=== PATIENT | female | born 1960 | race African-American/Black ===

== ENCOUNTER 2021-12-19 12:12 | Observation (INO) | payer OTHER, MEDICARE, BC ==
[2021-12-19] MEDS ORDERED: Morphine 4 MG/ML VIAL ONE ×2 (13:58→16:51)
[2021-12-19] MEDS ORDERED: Ketamine 50 MG/ML (10ML VIAL) ONE (17:45)
[2021-12-19] MEDS ORDERED: Fentanyl 100 MCG/2 ML VIAL ONE (19:11)
[2021-12-19 19:32] LABS: #Monocytes 0.6 10x3/uL (0.0-1.1); #Neutrophils 8.8 10x3/uL (1.5-8.4); %Basophils 0.4 % (0.0-2.0); %Eosinophils 0.1 % (0.0-6.0); %Lymphocytes 11.6 % (18.0-47.0); %Neutrophils 81.5 % (40.0-75.0); Hemoglobin 14.2 g/dL (12.0-15.5); Mean Corpuscular HGB CONC 32.6 g/dL (32.0-36.0); Mean Corpuscular Volume 89.2 fl (81.6-98.3); Mean Platelet Volume 11.1 fl (7.4-10.4); Platelet Count 239 10x3/uL (150-450); RBC Distribution Width 13.1 % (11.5-14.5); Red Blood Cell (RBC) Count 4.89 10x6/uL (3.90-5.03); White Blood Cell (WBC) Count 10.7 10x3/uL (3.5-10.5)
[2021-12-19] MEDS ORDERED: Calcium Carbonate 500 MG ChewTAB PO PRN (19:36)
[2021-12-19] MEDS ORDERED: Acetaminophen 325 MG TAB PO PRN (19:36)
[2021-12-19] MEDS ORDERED: Ondansetron PF 4 MG/2 ML Vial IVP PRN (19:36)
[2021-12-19] MEDS ORDERED: Zolpidem Tartrate 5 MG TAB PO PRN (19:36)
[2021-12-19] MEDS ORDERED: Guaifenesin DM 100-10/5 ML UDCUP PO PRN (19:36)
[2021-12-19] MEDS ORDERED: Senokot S 8.6-50 MG TAB PO PRN (19:36)
[2021-12-19 19:37] LABS: ALT (SGPT) 16 U/L (8-55); AST (SGOT) 23 U/L (5-34); Alkaline Phosphatase 124 U/L (40-110); Anion Gap 13 mmol/L (10-20); BUN (Urea Nitrogen) 9 mg/dL (9.8-20.1); Bilirubin, Total 0.5 mg/dL (0.2-1.2); CK (CPK) 316 U/L (29-168); Calc. Creatinine Clearance 0 mL/min (70-130); Calcium 9.2 mg/dL (7.8-10.44); Carbon Dioxide 26 mmol/L (23-31); Chloride 107 mmol/L (98-107); Estimated GFR 100; Globulin 4.2 g/dL (2.4-3.5); Glucose 108 mg/dL (80-115); Potassium 4.1 mmol/L (3.5-5.1); Protein, Total 8.2 g/dL (5.8-8.1); Sodium 142 mmol/L (136-145)
[2021-12-19] MEDS ORDERED: Fentanyl 100 MCG/2 ML VIAL SLOW IVP PRN (19:38)
[2021-12-19] MEDS ORDERED: hydrALAZINE 20 MG/ML VIAL SLOW IVP PRN (19:40)
[2021-12-19 21:00] LABS: SARS-CoV-2 NAA Rapid Test Not Detected (NotDetected)
[2021-12-19] MEDS ORDERED: Morphine 2 MG/ML VIAL SLOW IVP PRN (21:12)
[2021-12-19] MEDS ORDERED: Lactated Ringer's 1,000 ML IV SCH (21:15)
[2021-12-19] MEDS ORDERED: Ketorolac Tromethamine 30 MG/ML VIAL ONE (21:54)
[2021-12-19] MEDS ORDERED: Famotidine 20 MG TAB ONE (21:56)
[2021-12-19] MEDS ORDERED: Atorvastatin Calcium 10 MG TAB ONE (21:57)
[2021-12-19] MEDS: Famotidine 20 MG TAB PO SCH (22:06)
[2021-12-19] MEDS: Docusate 100 MG CAP PO SCH (22:06)
[2021-12-19] MEDS: Atorvastatin Calcium 10 MG TAB PO SCH (22:06)
[2021-12-19] MEDS: Ketorolac Tromethamine 30 MG/ML VIAL IVP SCH (22:07)
[2021-12-19] MEDS: Valproate Sodium 250 mg/5 ml UD Cup PO SCH (22:14)
[2021-12-20] MEDS ORDERED: HYDROcodone/Acetaminophen 5/325 mg Tablet ONE (01:58)
[2021-12-20] MEDS: HYDROcodone/Acetaminophen 5/325 mg Tablet PO PRN (02:04)
[2021-12-20] MEDS: Ketorolac Tromethamine 30 MG/ML VIAL IVP SCH ×3 (04:33→16:21)
[2021-12-20] MEDS ORDERED: Ketorolac Tromethamine 30 MG/ML VIAL ONE (04:35)
[2021-12-20 05:09] LABS: ALT (SGPT) 14 U/L (8-55); AST (SGOT) 20 U/L (5-34); Albumin 3.8 g/dL (3.4-4.8); Alkaline Phosphatase 129 U/L (40-110); Anion Gap 14 mmol/L (10-20); BUN (Urea Nitrogen) 8 mg/dL (9.8-20.1); Bilirubin, Total 0.5 mg/dL (0.2-1.2); CK (CPK) 337 U/L (29-168); Calc. Creatinine Clearance 0 mL/min (70-130); Carbon Dioxide 27 mmol/L (23-31); Chloride 106 mmol/L (98-107); Estimated GFR 99; Globulin 3.8 g/dL (2.4-3.5); Glucose 90 mg/dL (80-115); Potassium 3.5 mmol/L (3.5-5.1); Protein, Total 7.6 g/dL (5.8-8.1); Sodium 143 mmol/L (136-145)
[2021-12-20 08:07] VITALS: BMI 36.1
[2021-12-20] MEDS: Docusate 100 MG CAP PO SCH ×2 (09:09→21:43)
[2021-12-20] MEDS: Amlodipine 10 MG TAB PO SCH (09:09)
[2021-12-20] MEDS: Famotidine 20 MG TAB PO SCH ×2 (09:10→21:43)
[2021-12-20] MEDS: Valproate Sodium 250 mg/5 ml UD Cup PO SCH ×2 (09:10→21:49)
[2021-12-20] MEDS: Acetaminophen 500 MG TAB PO SCH ×2 (13:40→16:21)
[2021-12-20] MEDS: Atorvastatin Calcium 10 MG TAB PO SCH (21:42)
[2021-12-21] MEDS: Acetaminophen 500 MG TAB PO SCH ×6 (00:02→21:52)
[2021-12-21] MEDS: Valproate Sodium 250 mg/5 ml UD Cup PO SCH ×2 (09:17→20:15)
[2021-12-21] MEDS: Famotidine 20 MG TAB PO SCH ×2 (09:18→20:18)
[2021-12-21] MEDS: HYDROcodone/Acetaminophen 5/325 mg Tablet PO PRN ×2 (09:18→20:15)
[2021-12-21] MEDS: Docusate 100 MG CAP PO SCH ×2 (09:18→20:15)
[2021-12-21] MEDS: Amlodipine 10 MG TAB PO SCH (09:18)
[2021-12-21 16:13] VITALS: BP 129/59; TEMP 98.3
[2021-12-21] MEDS: Atorvastatin Calcium 10 MG TAB PO SCH (20:15)
[2021-12-27] MEDS ORDERED: Ergocalciferol 1.25 MG(50,000 UNITS) CAP PO SCH (09:00)
== END 2021-12-21 20:30 | disposition home or self-care (01) ==
LOC: CSHERS 12:12 → INTOOBSV 21:10 → EEVIPCON 21:10 → CSHERHOLD 21:10 → CSHTELE 12-20 07:52
PROVIDERS: ADMIT Family Medicine; ATTEND Nurse Practitioner Family
DX: S52.501A Unspecified fracture of the lower end of right radius, initial encounter for closed fracture (principal); Z20.822 Contact with and (suspected) exposure to COVID-19; I10 Essential (primary) hypertension; E78.2 Mixed hyperlipidemia; G40.909 Epilepsy, unspecified, not intractable, without status epilepticus; R42 Dizziness and giddiness; E04.1 Nontoxic single thyroid nodule; E87.6 Hypokalemia; M16.0 Bilateral primary osteoarthritis of hip; M19.011 Primary osteoarthritis, right shoulder; Z79.899 Other long term (current) drug therapy; Z88.8 Allergy status to other drugs, medicaments and biological substances; Z85.3 Personal history of malignant neoplasm of breast; Z91.19 Patient's noncompliance with other medical treatment and regimen; Z91.81 History of falling; W01.0XXA Fall on same level from slipping, tripping and stumbling without subsequent striking against object, initial encounter
CPT/HCPCS: 25605; 70450; 72125; 72170; 73030; 73060; 73100; 73120; 73502; 80053 ×2; 82306; 82550 ×2; 85025; 94760; 96374; 96375 ×2; 96376; 97116; 97535; 99152; 99153; 99285; G0378 ×4; U0002; 36415; J1885; J2270; J3010; J7120

== ENCOUNTER 2022-02-21 13:12 | Day surgery (SDC) | payer MEDICARE, BC ==
[2022-02-21] MEDS ORDERED: Lidocaine 1% PF 5 ML VIAL ONE (13:37)
[2022-02-21] MEDS ORDERED: Sodium Bicarbonate 2.5 MEQ/5 ML VIAL ONE (13:38)
[2022-02-21 13:47] VITALS: BP 152/81; TEMP 97.2
== END 2022-02-21 15:05 | disposition home or self-care (01) ==
LOC: CSHULT 13:12
PROVIDERS: ATTEND Physician Assistant
PROC: 0GBG3ZX Excision of Left Thyroid Gland Lobe, Percutaneous Approach, Diagnostic (ICD-10-PCS; principal; 2022-02-21)
DX: E04.1 Nontoxic single thyroid nodule (principal); E78.5 Hyperlipidemia, unspecified; F41.9 Anxiety disorder, unspecified; S52.501A Unspecified fracture of the lower end of right radius, initial encounter for closed fracture; M25.50 Pain in unspecified joint; Z79.899 Other long term (current) drug therapy; W01.0XXA Fall on same level from slipping, tripping and stumbling without subsequent striking against object, initial encounter
CPT/HCPCS: 10005; 88173; 88305

== ENCOUNTER 2022-07-11 16:24 | Emergency (ER) | payer MEDICARE, BC ==
[2022-07-11 17:15] LABS: #Eosinphils 0.1 10x3/uL (0.0-0.5); #Monocytes 0.6 10x3/uL (0.0-1.1); #Neutrophils 4.7 10x3/uL (1.5-8.4); %Basophils 0.5 % (0.0-2.0); %Eosinophils 1.1 % (0.0-6.0); %Lymphocytes 28.6 % (18.0-47.0); %Monocytes 7.3 % (0.0-10.0); %Neutrophils 62.1 % (40.0-75.0); Hemoglobin 14.2 g/dL (12.0-15.5); Mean Corpuscular HGB CONC 33.3 g/dL (32.0-36.0); Mean Corpuscular Hemoglobin 29.5 pg (27.0-33.0); Mean Corpuscular Volume 88.6 fl (81.6-98.3); Mean Platelet Volume 10.6 fl (7.4-10.4); Platelet Count 246 10x3/uL (150-450); RBC Distribution Width 12.7 % (11.5-14.5); Red Blood Cell (RBC) Count 4.81 10x6/uL (3.90-5.03); White Blood Cell (WBC) Count 7.5 10x3/uL (3.5-10.5)
[2022-07-11 17:31] LABS: ALT (SGPT) 11 U/L (8-55); AST (SGOT) 15 U/L (5-34); Albumin 3.9 g/dL (3.4-4.8); Alkaline Phosphatase 126 U/L (40-110); Anion Gap 13 mmol/L (10-20); BUN (Urea Nitrogen) 16 mg/dL (9.8-20.1); Bilirubin, Total 0.3 mg/dL (0.2-1.2); Calc. Creatinine Clearance 0 mL/min (70-130); Calcium 9.5 mg/dL (7.8-10.44); Carbon Dioxide 27 mmol/L (23-31); Chloride 105 mmol/L (98-107); Estimated GFR 94; Globulin 4.1 g/dL (2.4-3.5); Glucose 80 mg/dL (80-115); Sodium 141 mmol/L (136-145)
== END 2022-07-11 19:17 | disposition home or self-care (01) ==
LOC: CSHERS 16:24
DX: N95.0 Postmenopausal bleeding (principal); D25.9 Leiomyoma of uterus, unspecified; I10 Essential (primary) hypertension; G43.909 Migraine, unspecified, not intractable, without status migrainosus
CPT/HCPCS: 36415; 76856; 80053; 85025